=== PATIENT | female | born 2000 ===

== ENCOUNTER 2021-05-16 21:17 | Emergency (ER) | payer BC ==
--- OUTSIDE RECORDS SUMMARY | 2021-05-16 21:19 | XMS REPORT | Continuity of Care Document ---
:2000 Author Organization [facility] t Address [address] [place] [address] [address] [place] [address] Care Team Providers Name Role Phone ARANZA Attending Clinician Unavailable Payers Payer Name Policy Type Policy Number Effective Date Expiration Date S [facility] [id number] 2018 00:00:00 Problems This patient has no known problems. Allergies, Adverse Reactions, Alerts Allergy Allergy Status Severity Reaction(s) Onset Inactive Treating Comm ents Source Name Type Date Date Clinician NO KNOWN Drug Active [facility] ALLERG[facility] Class [facility] Medications This patient has no known medications. Procedures This patient has no known procedures. Encounters Start End Encounter Admission Attending Care Care Encounter Source Date/Time Date/Time Type Type Clinicians Facility Department ID 2019-09-29 2019-09-29 Outpatient R [facility] [id number] [facility] 15:20:00 15:20:00 [facility] 2019-09-29 2019-09-29 Outpatient R ARANZA [facility] [id number] Univers 15:20:00 15:20:00 TIM [facility] Results This patient has no known results.
[2021-05-16 22:39] LABS: Absolute Lymphocytes (CBC) 1.5 K/uL (0.7-4.9); Hematocrit 36.9 % (36.0-45.0); Lymphocytes % 25.4 % (15.3-44.8); MPV 7.9 fL (7.6-11.3)
[2021-05-16 22:41] LABS: Urine Blood Trace-lysed (Negative); Urine Glucose Negative (Negative); Urine Protein Negative (Negative); Urine Specific Gravity 1.025 (1.005-1.030); Urine pH 5.5 (5.0-7.0)
[2021-05-16 22:55] LABS: ALT/SGPT 18 U/L (12-78); AST/SGOT 16 U/L (15-37); Albumin 3.6 g/dL (3.4-5.0); Alkaline Phosphatase 55 U/L (45-117); BUN Blood Urea Nitrogen 16 mg/dL (7-18); Bicarbonate 28 mmol/L (21-32); Bilirubin Direct < 0.1 mg/dL (0-0.2); Bilirubin Total 0.2 mg/dL (0.2-1.0); Glucose Level 87 mg/dL (74-106); Lipase 97 U/L (73-393); Potassium 3.7 mmol/L (3.5-5.1); Protein, Total 6.9 g/dL (6.4-8.2); Sodium Level 141 mmol/L (136-145)
[2021-05-16 22:55] LABS: Urine Bacteria 20-50 /HPF (<20); Urine Mucus 2+ /HPF (NONE SEEN); Urine RBC <5 /HPF (NONE SEEN)
[2021-05-16 23:07] LABS: Urine Specific Gravity/Preg 1.025 (1.005-1.030)
--- NOTE | 2021-05-16 23:57 | EDPHYS ---
Physician Documentation [facility] Name: Citlaly Maxwell Age: 21 yrs Sex: Female : 2000 Arrival Date: 05/16/2021 Time: 21:22 Bed 19 Private MD: ED Physician Mayco Jo HPI: 05/16 23:00 This 21 yrs old Female presents to ER via Ambulatory with complaints of Abdominal Pain. jr8 23:00 The patient presents with abdominal pain in the periumbilical area. Onset: The jr8 symptoms/episode began/occurred acutely, today. The symptoms do not radiate. Associated signs and symptoms: none. The symptoms are described as stabbing. Modifying factors: The symptoms are alleviated by nothing, the symptoms are aggravated by nothing. Severity of pain: At its worst the pain was mild in the emergency department the pain is unchanged. The patient has not experienced similar symptoms in the past. The patient has not recently seen a physician. 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 - Social history:: Smoking status: Patient denies any tobacco usage or history of. ROS: 23:00 Eyes: Negative for injury, pain, redness, and discharge, ENT: Negative for injury, jr8 pain, and discharge, Neck: Negative for injury, pain, and swelling, Cardiovascular: Negative for chest pain, palpitations, and edema, Respiratory: Negative for shortness of breath, cough, wheezing, and pleuritic chest pain, Back: Negative for injury and pain, MS/Extremity: Negative for injury and deformity, Skin: Negative for injury, rash, and discoloration, Neuro: Negative for headache, weakness, numbness, tingling, and seizure. 23:00 Abdomen/GI: Positive for abdominal pain, Negative for nausea, vomiting, and diarrhea, abdominal distension, hematemesis, black/tarry stool, rectal pain, rectal bleeding. Exam: 23:00 Constitutional: This is a well developed, well nourished patient who is awake, alert, jr8 and in no acute distress. Cardiovascular: Regular rate and rhythm with a normal S1 and S2. No gallops, murmurs, or rubs. Normal PMI, no JVD. No pulse deficits. Respiratory: Lungs have equal breath sounds bilaterally, clear to auscultation and percussion. No rales, rhonchi or wheezes noted. No increased work of breathing, no retractions or nasal flaring. Back: No spinal tenderness. No costovertebral tenderness. Full range of motion. Skin: Warm, dry with normal turgor. Normal color with no rashes, no lesions, and no evidence of cellulitis. MS/ Extremity: Pulses equal, no cyanosis. Neurovascular intact. Full, normal range of motion. Neuro: Awake and alert, GCS 15, oriented to person, place, time, and situation. Cranial nerves II-XII grossly intact. Motor strength 5/5 in all extremities. Sensory grossly intact. 23:00 Abdomen/GI: Inspection: abdomen appears normal, Bowel sounds: active, all quadrants, Palpation: soft, in all quadrants, mild abdominal tenderness, in the umbilical area, mass, is not appreciated, rebound tenderness, is not appreciated, voluntary guarding, is not appreciated, involuntary guarding, is not appreciated, no appreciated organomegaly, Indicators: McBurney's point is not tender, Covarrubias's sign is negative, Rovsing's sign is negative, Liver: tenderness, is not appreciated. Vital Signs: 21:28 BP 123 / 76; Pulse 54; Resp 16 S; Temp 99.1(TE); Pulse Ox 100% on R/A; Weight 77.11 kg; vc1 Height 5 ft. 8 in. (172.72 cm); Pain 9/10; 05/17 00:16 BP 126 / 75; Pulse 65; Resp 17; Pulse Ox 99% on R/A; sm5 05/16 21:28 Body Mass Index 25.85 (77.11 kg, 172.72 cm) vc1 MDM: 05/16 22:13 Patient medically screened. [facility] 23:55 Data reviewed: vital signs, nurses notes, lab test result(s), radiologic studies, CT jr8 scan. Data interpreted: Pulse oximetry: on room air is 100 %. Interpretation: normal. Counseling: I had a detailed discussion with the patient and/or guardian regarding: the historical points, exam findings, and any diagnostic results supporting the discharge/admit diagnosis, lab results, radiology results, the need for outpatient follow up, a family practitioner, to return to the emergency department if symptoms worsen or persist or if there are any questions or concerns that arise at home. Response to treatment: the patient's symptoms have mildly improved after treatment. Special discussion: Based on the patient's Hx, exam, and Dx evaluation, there is no indication for emergent surgery or inpatient Tx. It is understood by the patient/guardian that if the Sx's persist or worsen they need to return immediately for re-evaluation. 05/16 22:20 Order name: Basic Metabolic Panel; Complete Time: 22:59 [facility] 05/16 22:20 Order name: CBC with Diff; Complete Time: 22:46 [facility] 05/16 22:20 Order name: Hepatic Function; Complete Time: 22:59 [facility] 05/16 22:20 Order name: Lipase; Complete Time: 22:59 [facility] 05/16 22:24 Order name: Urine Microscopic Only [facility] 05/16 22:24 Order name: Urine Microscopic Only; Complete Time: 22:59 [facility] 05/16 22:20 Order name: IV Saline Lock; Complete Time: 22:32 [facility] 05/16 22:20 Order name: Labs collected and sent; Complete Time: 22:33 [facility] 05/16 22:24 Order name: Urine Dipstick-Ancillary (obtain specimen); Complete Time: 22:43 [facility] 05/16 22:41 Order name: Urine Dipstick-Ancillary; Complete Time: 22:46 [facility] 05/16 22:56 Order name: Urine Culture [facility] 05/16 22:59 Order name: CT Abd/Pelvis - IV Contrast Only [facility] 05/16 23:04 Order name: Urine --Ancillary (enter results) sm5 05/16 23:04 Order name: Urine --Ancillary; Complete Time: 23:58 [facility] 05/16 22:24 Order name: Urine Test (obtain specimen); Complete Time: 22:42 [facility] Administered Medications: No medications were administered Disposition Summary: 05/16/21 23:57 Discharge Ordered Location: Home jr Problem: new jr8 Symptoms: have improved jr8 Condition: Stable jr8 Diagnosis - Abdominal pain, Generalized jr8 - UTI/ Urinary tract infection, site not specified jr8 Followup: jr8 - With: Private Physician - When: 2 - 3 days - Reason: Recheck today's complaints, Continuance of care, Re-evaluation by your physician Discharge Instructions: - Discharge Summary Sheet jr8 - Abdominal Pain, Adult jr8 - Urinary Tract Infection, Adult jr8 Forms: - Medication Reconciliation Form jr8 - Thank You Letter jr8 - Antibiotic Education jr8 - Prescription Opioid Use jr8 Prescriptions: - Macrobid 100 mg Oral Capsule - take 1 capsule by ORAL route every 12 hours for 7 days; 14 capsule; Refills: 0, jr8 Product Selection Permitted Signatures: Dispatcher [employer] EDMayco Greer MD MD cha Roszak, Josh, PA PA jr8 Lorena Valdivia RN RN vc1 Corrections: (The following items were deleted from the chart) 21:34 21:33 Home Meds: None; vc1 vc1 21:44 21:33 Home Meds: amoxicillin 500 mg Oral tab 2 tabs 4 times per day; vc1 vc1
--- NOTE | 2021-05-16 23:57 | ER ---
Nurse's Notes [facility] Name: Citlaly Maxwell Age: 21 yrs Sex: Female : 2000 Arrival Date: 05/16/2021 Time: 21:22 Bed 19 Private MD: Diagnosis: Abdominal pain, Generalized;UTI/ Urinary tract infection, site not specified Presentation: 05/16 21:28 Chief complaint: Patient states: I am having really bad stomach pains right above my vc1 belly button. Coronavirus screen: Vaccine status: Patient reports receiving the 1st dose of the Covid vaccine. Pfizer At this time, the client does not indicate any symptoms associated with coronavirus-19. Ebola Screen: No symptoms or risks identified at this time. Initial Sepsis Screen: Does the patient meet any 2 criteria? No. Patient's initial sepsis screen is negative. Does the patient have a suspected source of infection? No. Patient's initial sepsis screen is negative. Risk Assessment: Do you want to hurt yourself or someone else? Patient reports no desire to harm self or others. Onset of symptoms was May 16, 2021 at 19:30. 21:28 Method Of Arrival: Ambulatory vc1 21:28 Acuity: DINORAH 4 vc1 Triage Assessment: 21:33 General: Appears in no apparent distress. comfortable, Behavior is calm, cooperative, vc1 appropriate for age. Pain: Complains of pain in umbilical area Pain does not radiate. Pain currently is 9 out of 10 on a pain scale. Quality of pain is described as crampy, pressure, Pain began suddenly. Neuro: No deficits noted. Cardiovascular: No deficits noted. GI: Reports epigastric pain, Patient currently denies diarrhea, nausea. 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 - Social history:: Smoking status: Patient denies any tobacco usage or history of. Screenin:36 Abuse screen: Denies threats or abuse. Nutritional screening: No deficits noted. vc1 Tuberculosis screening: No symptoms or risk factors identified. Fall Risk None identified. Assessment: 22:44 General: Appears in no apparent distress. Behavior is cooperative, appropriate for age. sm5 Pain: Complains of pain in abdomen and umbilical area. Neuro: No deficits noted. Level of Consciousness is awake, alert, Oriented to person, place, time, situation. Cardiovascular: No deficits noted. Capillary refill < 3 seconds Patient's skin is warm and dry. Respiratory: No deficits noted. Airway is patent Trachea midline Respiratory effort is even, unlabored. GI: Abdomen is flat, Bowel sounds present X 4 quads. Abd is soft Patient currently denies diarrhea, nausea, vomiting. 05/17 00:17 Reassessment: No changes from previously documented assessment. 5 Vital Signs: 05/16 21:28 BP 123 / 76; Pulse 54; Resp 16 S; Temp 99.1(TE); Pulse Ox 100% on R/A; Weight 77.11 kg; vc1 Height 5 ft. 8 in. (172.72 cm); Pain 9/10; 05/17 00:16 BP 126 / 75; Pulse 65; Resp 17; Pulse Ox 99% on R/A; sm5 05/16 21:28 Body Mass Index 25.85 (77.11 kg, 172.72 cm) vc1 ED Course: 05/16 21:22 Patient arrived in ED. ja2 21:33 Triage completed. vc1 21:36 Arm band placed on left wrist. vc1 21:40 Cleo Norwood, SANDY is Primary Nurse. 5 21:40 Patient has correct armband on for positive identification. Placed in gown. Bed in low vc1 position. Call light in reach. Pulse ox on. NIBP on. 22:12 Jose Sanchez PA is PHCP. jr8 22:12 Mayco Jo MD is Attending Physician. jr8 22:30 Inserted saline lock: 20 gauge in right antecubital area, using aseptic technique. 5 Blood collected. 22:33 Basic Metabolic Panel Sent. sm5 22:33 CBC with Diff Sent. sm5 22:33 Hepatic Function Sent. sm5 22:33 Lipase Sent. sm5 22:43 Urine Microscopic Only Sent. sm5 23:03 Urine Culture Sent. sm5 23:03 Urine Microscopic Only Sent. sm5 23:32 CT Abd/Pelvis - IV Contrast Only In Process Unspecified. EDMS 23:43 Urine --Ancillary (enter results) Sent. [facility] 05/17 00:17 No provider procedures requiring assistance completed. IV discontinued, intact, sm5 bleeding controlled, No redness/swelling at site. Pressure dressing applied. Administered Medications: No medications were administered Outcome: 05/16 23:57 Discharge ordered by MD. mendoza 05/17 00:17 Discharged to home ambulatory, with significant other. [facility] Condition: stable Discharge instructions given to patient, significant other, Instructed on discharge instructions, follow up and referral plans. medication usage, Demonstrated understanding of instructions, follow-up care, medications, Prescriptions given X 1. 00:17 Patient left the ED. 5 Addendum: 05/19/2021 10:35 Addendum: Culture Results: Positive urine culture. No further action required. Bacteria s s sensitive to prescribed antibiotic. Signatures: Dispatcher [employer] EDOH Dipika Chand RN RN ss Roszak, Josh, PA PA Vera Harris Sarah, RN RN 5 Lorena Valdivia RN RN vc1 Corrections: (The following items were deleted from the chart) 05/16 21:34 21:33 Home Meds: None; vc1 vc1 21:44 21:33 Home Meds: amoxicillin 500 mg Oral tab 2 tabs 4 times per day; vc1 vc1
[2021-05-17 00:40] VITALS: TEMP 99.1
[2021-05-17 00:41] VITALS: BP 126/75; O2SAT 99
--- NOTE | 2021-05-18 12:53 | RAD REPORT ---
EXAM DESCRIPTION: CT - Abdomen Pelvis W Contrast - 05/17/2021 6:40 am CLINICAL HISTORY: 21 years Female ABD PAIN TECHNIQUE: Contiguous axial images obtained through the abdomen and pelvis following intravenous con trast administration. Coronal and sagittal reformatted images provided. This CT exam was performed according to our departmental dose-optimization program, which includes on e or more of the following dose reduction techniques: automated exposure control, adjustment of the m A and/or kV according to patient size, and/or use of iterative reconstruction technique. COMPARISON: No prior exams provided for comparison. FINDINGS: Minimal bibasilar atelectasis. The liver is mildly enlarged without focal lesion. The biliary tree, gallbladder, pancreas, spleen, adrenal glands, uterus, ovaries, urinary bladder, an d osseous structures are normal. Multiple bilateral renal cysts. No hydronephrosis or pyelonephritis. There is no bowel inflammation, obstruction, free intraperitoneal air, or ascites. The appendix is no rmal. IMPRESSION: No acute abdominal or pelvic abnormalities. The liver is enlarged without focal lesion. Multiple bilateral renal cysts. Electronically signed by: Karissa Thapa MD 05/16/2021 11:41 PM [employer] Due to temporary technical issues with the PACS/Fluency reporting system, reports are being signed by the in house radiologists without review as a courtesy to insure prompt reporting. The interpreting radiologist is fully responsible for the content of the report.
== END 2021-05-17 00:17 | disposition home or self-care (01) ==
LOC: ER 21:17
DX: N39.0 Urinary tract infection, site not specified (principal)
CPT/HCPCS: 87088; 85025; 87086; 80048; 36415; 81025; 80076; 87077; 87186; 83690; 74177; 99284; Q9967; 81003; 81015